=== PATIENT | female | born 1980 | race Caucasian/White ===

== ENCOUNTER → 2017-01-04 | Outpatient (CLI) | payer BC, OTHER ==
--- NOTE | 2017-01-04 10:45 | Diagnostic Imaging Report ---
PROCEDURE: US Gallbladder. TECHNIQUE: Multiple real-time grayscale images were obtained over the right upper quadrant in various projections. INDICATION: Abdominal pain. COMPARISON: None. FINDINGS: The liver appears unremarkable. The gallbladder appears unremarkable. There is no biliary dilatation. Common bile duct measures 2 mm. Pancreas is not well visualized. Visualized portions appear unremarkable. The right kidney measures 11.3 cm in length and appears normal. There is no ascites or sonographic Morrell's sign. IMPRESSION: No acute abnormality is seen. There is limited visualization of the pancreas. Dictated by: Dictated on workstation # [id number]
== END ==
LOC: RAD 09:13
PROVIDERS: ATTEND Nurse Practitioner Family
DX: R10.84 Generalized abdominal pain (principal); R59.0 Localized enlarged lymph nodes; E01.0 Iodine-deficiency related diffuse (endemic) goiter
CPT/HCPCS: 76705

== ENCOUNTER → 2017-01-18 | Outpatient (CLI) | payer BC ==
[~2017-01-18] MED LIST: CATHETER FLUSH 10 ML SYR IV PRN; LIOTHYSO5 PO; THYR60TA2 PO
--- NOTE | 2017-01-18 15:40 | Diagnostic Imaging Report ---
EXAMINATION: HIDA with EF measurements Indication: Abdominal pain TECHNIQUE: After the intravenous administration of 5 mCi of Tc 99m Choletec, imaging over the abdomen was obtained. This was followed by administration of Ensure orally to stimulate intrinsic CCK secretion, followed by continued imaging with ejection fraction measured. FINDINGS: There is homogeneous uptake in the liver with prompt bile duct and gallbladder filling seen. Bowel activity is seen at 10 minutes. Based on further imaging and gallbladder area of interest activity measurements after the administration of Ensure, the gallbladder ejection fraction is estimated at 68%. IMPRESSION: 1. Normal hepatobiliary uptake and Gallbladder filling. 2. Normal gallbladder ejection fraction. Dictated by: Dictated on workstation # [id number]
--- NOTE | 2017-01-19 11:35 | Physician Query-Final Dx ---
DINO LAGUNAS 01/19/17 1135: Clinic Account Progress/Dx Physician Query: Please give diagnosis Please give specific location of patients abdominal pain. Date of Service Jan 18, 2017 at 12:47 CARI PERSAUD DO 01/29/17 0814: Clinic Account Progress/Dx DIAGNOSIS: Diagnosis 1. Right upper quadrant abdominal pain. DINO LAGUNAS Jan 19, 2017 11:35 CARI PERSAUD DO Jan 29, 2017 08:14
== END ==
LOC: CARD 12:47
PROVIDERS: ATTEND Internal Medicine
DX: R10.11 Right upper quadrant pain (principal)
CPT/HCPCS: 78227

== ENCOUNTER 2017-01-28 15:08 | Outpatient (CLI) | payer BC ==
[~2017-01-28] VITALS: Ht 172.7 cm; Wt 68.0 kg
[2017-01-28] MEDS ORDERED: THYR60TA2 PO (15:41)
[2017-01-28] MEDS ORDERED: LIOTHYSO5 PO (15:41)
== END 2017-01-28 15:43 ==
LOC: PREOP 15:08
PROVIDERS: ATTEND Surgery
DX: Z01.818 Encounter for other preprocedural examination (principal); E04.9 Nontoxic goiter, unspecified

== ENCOUNTER → 2018-03-01 | Outpatient (CLI) | payer BC ==
[~2018-03-01] MED LIST changes: +ACHD5005 PO; -CATHETER FLUSH 10 ML SYR IV PRN; +IOHEXOL 350 MG/ML 100 ML (OMNIPAQUE 350) VIAL IV ONE; +NS 250 ML (IVPB) BAG IV ONE
--- NOTE | 2018-03-01 10:13 | Diagnostic Imaging Report ---
PROCEDURE: CT neck soft tissue with and without contrast. TECHNIQUE: Helically acquired axial images were obtained through the neck both before and after the administration of intravenous contrast. INDICATION: Lymphadenopathy. COMPARISON: Thyroid ultrasound 01/04/2017. FINDINGS: No cervical lymphadenopathy. No mass or fluid collection in the neck. Left thyroidectomy. The pharyngeal and laryngeal soft tissues are symmetric bilaterally with no focal mass or enhancement. The visualized floor of the mouth, tongue base and epiglottis are negative. The cervical carotid and vertebral arteries are grossly patent. The major salivary glands are negative. The lung apices are clear. The visualized intracranial contents, skull base and mastoids are negative. IMPRESSION: No acute CT findings in the neck. No cervical lymphadenopathy, mass or fluid collection. Dictated by: Dictated on workstation # [id number]
== END ==
LOC: RAD 08:12
PROVIDERS: ATTEND Nurse Practitioner Family
DX: R59.0 Localized enlarged lymph nodes (principal)
CPT/HCPCS: 70492

== ENCOUNTER 2018-06-24 11:42 | Outpatient (CLI) | payer BC ==
[~2018-06-24] VITALS: Ht 172.7 cm; Wt 64.6 kg
[~2018-06-24 11:42] MED LIST changes: -IOHEXOL 350 MG/ML 100 ML (OMNIPAQUE 350) VIAL IV ONE; -NS 250 ML (IVPB) BAG IV ONE
[2018-06-24] MEDS ORDERED: LEVO112T2 PO (11:54)
[2018-06-24 12:03] VITALS: BP 107/73
[2018-06-24 12:28] LABS: BASOPHILS % (AUTO) 0 % (0-10); EOSINOPHILS % (AUTO) 0 % (0-10); HEMATOCRIT 41 % (35-52); HEMOGLOBIN 13.8 G/DL (11.5-16.0); LYMPHOCYTES # (AUTO) 2.5 X 10^3 (1.0-4.0); LYMPHOCYTES % (AUTO) 25 % (12-44); MEAN CORPUSCULAR HEMOGLOBIN 32 PG (25-34); MEAN CORPUSCULAR HGB CONC 34 G/DL (32-36); MEAN CORPUSCULAR VOLUME 95 FL (80-99); MEAN PLATELET VOLUME 10.7 FL (7.4-10.4); MONOCYTES # (AUTO) 0.7 X 10^3 (0.0-1.0); MONOCYTES % (AUTO) 7 % (0-12); NEUTROPHILS # (AUTO) 6.6 X 10^3 (1.8-7.8); NEUTROPHILS % (AUTO) 67 % (42-75); PLATELET COUNT 306 10^3/uL (130-400); RED CELL DISTRIBUTION WIDTH 12.5 % (10.0-14.5); WHITE BLOOD COUNT 9.9 10^3/uL (4.3-11.0)
== END 2018-06-24 12:30 | disposition home or self-care (01) ==
LOC: PREOP 11:42
PROVIDERS: ATTEND Obstetrics & Gynecology
DX: Z01.812 Encounter for preprocedural laboratory examination (principal); Z11.2 Encounter for screening for other bacterial diseases; N87.1 Moderate cervical dysplasia; N81.2 Incomplete uterovaginal prolapse; R10.2 Pelvic and perineal pain; N39.3 Stress incontinence (female) (male); D64.9 Anemia, unspecified
CPT/HCPCS: 36415; 85025; 86850; 86900; 86901; 87081

== ENCOUNTER 2018-07-01 11:24 | Day surgery (SDC) | payer BC ==
[~2018-07-01] VITALS: Ht 172.7 cm; Wt 64.6 kg
[~2018-07-01 11:24] MED LIST changes: +LEVO112T2 PO
[2018-07-01 11:30] VITALS: BP 112/74
[2018-07-01] MEDS ORDERED: ceFAZolin INJECTION 1,000 MG in WATER (STERILE) FOR INJECTION 10 ML IV ONE (11:30)
[2018-07-01] MEDS ORDERED: LIDOCAINE PF 2% 5 ML (XYLOCAINE) VIAL ONE (11:37)
[2018-07-01] MEDS ORDERED: ONDANSETRON 4 MG/2 ML (SDV) Z0FRAN ONE ×2 (11:37→14:49)
[2018-07-01] MEDS ORDERED: proPOfol 200 MG/20 ML (DIPRIVAN) VIAL IV ONE (11:37)
[2018-07-01] MEDS ORDERED: MIDAZOLAM 2 MG/2 ML (VERSED) VIAL ONE (11:37)
[2018-07-01] MEDS ORDERED: fentaNYL INJECTION 100 MCG/2 ML AMP ONE ×2 (11:37→13:27)
[2018-07-01] MEDS ORDERED: SEVOFLURANE (ULTANE) 15 ML INHAL SOLN ONE ×12 (11:37→14:46)
[2018-07-01] MEDS ORDERED: DEXAMETHASONE 10 MG/ML (DECADRON) 1 ML VIAL ONE (11:38)
[2018-07-01] MEDS ORDERED: GLYCOPYRROLATE 0.2 MG/ML (ROBINUL) 2 ML VIAL ONE ×2 (11:38→14:46)
[2018-07-01] MEDS ORDERED: NEOSTIGMINE 1 MG/ML 5 ML SYRINGE ONE (11:38)
[2018-07-01] MEDS ORDERED: ESTRADIOL VAGINAL CREAM 42.5 GM (ESTRACE) VG ONE (11:39)
[2018-07-01] MEDS ORDERED: BUP/EPI 0.25% 1:200,000 (MARCAINE) 10 ML VIAL IJ ONE (11:39)
[2018-07-01] MEDS ORDERED: KETOROLAC 30 MG/ML VIAL ONE ×2 (11:41→14:48)
[2018-07-01] MEDS: LACTATED RINGERS 1,000 ML IV PRN ×2 (11:45→13:05)
[2018-07-01] MEDS ORDERED: ceFAZolin INJECTION 1,000 MG ONE (12:01)
--- NOTE | 2018-07-01 12:08 | Progress Note-Pre Operative ---
Pre-Operative Progress Note H&P Reviewed The H&P was reviewed, patient examined and no changes noted. Date Seen by Provider: Jul 01, 2018 Time Seen by Provider: 12:08 Date H&P Reviewed: Jul 01, 2018 Time H&P Reviewed: 12:08 Pre-Operative Diagnosis: ADDIE II / Uterovaginal prolapse PAVAN CLEMONS MD Jul 01, 2018 12:08
--- NOTE | 2018-07-01 12:10 | Progress Note-Post Operative ---
Post-Operative Progess Note Surgeon (s)/Aml Analyst (s) Surgeon PAVAN CLEMONS MD Aml Analyst: Pattie Acevedo Pre-Operative Diagnosis ADDIE II / Uterovaginal prolapse Post-Operative Diagnosis Same with extensive endometriosis and with path pending Procedure & Operative Findings Date of Procedure 07/01/18 Procedure Performed/Findings TLH/RSO/LSO/A&P Repairs with Enterocele repair/LS Appy and with the adhesio lysis and cystoscopy Anesthesia Type GETA Estimated Blood Loss Estimated blood loss (mL): Minimal Specimens/Packing Specimens Removed Uterus/Tubes/R and L Ovary/Appy Packing: PAVAN Small MD Jul 01, 2018 12:10
[2018-07-01] MEDS ORDERED: PROMETHAZINE INJ 25 MG/ML (PHENERGAN) AMP IM PRN (12:15)
[2018-07-01] MEDS ORDERED: WATER (STERILE) FOR INJ 10 ML BTL INJ ONE (12:15)
[2018-07-01] MEDS ORDERED: MEPERIDINE (DEMEROL) INJ 100 MG/ML IM PRN (12:15)
[2018-07-01] MEDS ORDERED: ESTROGENS CONJ IV 25 MG/5 ML (PREMARIN) VIAL IVP ONE (12:15)
[2018-07-01] MEDS ORDERED: BENZOCAINE/MENTHOL (DERMOPLAST) 56 ML CAN TP PRN (12:15)
[2018-07-01] MEDS ORDERED: ONDANSETRON 4 MG/2 ML (SDV) Z0FRAN IVP PRN ×2 (12:15→15:15)
--- OUTSIDE RECORDS SUMMARY | 2018-07-01 12:16 | XMS REPORT | Continuity of Care Document ---
Author Author [facility] Organization [facility] Address Unknown Phone Unavailable Allergies Active Description Code Type Severity Reaction Onset Reported/Identified Relationship to Patient Clinical Status Yes NKANo Known Allergies NKA Miscellaneous Allergy Unknown N/A 09/23/2006 Yes No Known Drug Allergies [id number] Drug Allergy Unknown N/A 06/24/2018 Medications There is no data. Problems Date Dx Coded Attending Type Code Diagnosis Diagnosed By 02/12/2014 DAMIAN PERSAUD SERVER SECURITY ADMINISTRATOR Ot 458.0 02/12/2014 DAMIAN PERSAUD SERVER SECURITY ADMINISTRATOR Ot 780.2 09/14/2014 DAMIAN PERSAUD SERVER SECURITY ADMINISTRATOR Ot 458.0 09/14/2014 DAMIAN PERSAUD SERVER SECURITY ADMINISTRATOR Ot 780.2 01/01/2017 DAMIAN PERSAUD SERVER SECURITY ADMINISTRATOR Ot 458.0 ORTHOSTATIC HYPOTENSION 01/01/2017 DAMIAN PERSAUD SERVER SECURITY ADMINISTRATOR Ot 780.2 SYNCOPE AND COLLAPSE 01/05/2017 DAMIAN PERSAUD SERVER SECURITY ADMINISTRATOR Ot E01.0 IODINE-DEFICIENCY RELATED DIFFUSE (ENDEM 01/05/2017 DAMIAN PERSAUD SERVER SECURITY ADMINISTRATOR Ot R10.84 GENERALIZED ABDOMINAL PAIN 01/05/2017 DAMIAN PERSAUD SERVER SECURITY ADMINISTRATOR Ot R59.0 LOCALIZED ENLARGED LYMPH NODES 01/21/2017 DAMIAN PERSAUD SERVER SECURITY ADMINISTRATOR Ot E01.0 IODINE-DEFICIENCY RELATED DIFFUSE (ENDEM 01/21/2017 DAMIAN PERSAUD SERVER SECURITY ADMINISTRATOR Ot R10.84 GENERALIZED ABDOMINAL PAIN 01/21/2017 DAMIAN PERSAUD SERVER SECURITY ADMINISTRATOR Ot R59.0 LOCALIZED ENLARGED LYMPH NODES 01/29/2017 BRIAN PERALES, KWESI Garnett Ot E04.9 NONTOXIC GOITER, UNSPECIFIED 01/29/2017 BRIAN PERLAES, KWESI Garnett Ot Z01.818 ENCOUNTER FOR OTHER PREPROCEDURAL EXAMIN 01/29/2017 CARI PERSAUD DO Ot R10.11 RIGHT UPPER QUADRANT PAIN 02/04/2017 BRIAN PERALES, KWESI Garnett Ot C73 MALIGNANT NEOPLASM OF THYROID GLAND 02/04/2017 BRIAN PERALES, KWESI Garnett Ot E04.2 NONTOXIC MULTINODULAR GOITER 02/04/2017 BRIAN PERALES, KWESI Garnett Ot F17.210 NICOTINE DEPENDENCE, CIGARETTES, UNCOMPL 02/10/2017 KWESI TORRES MD Ot C73 MALIGNANT NEOPLASM OF THYROID GLAND 02/10/2017 BRIAN PERALES, KWESI Garnett Ot F17.210 NICOTINE DEPENDENCE, CIGARETTES, UNCOMPL 02/16/2017 BRIAN PERALES, KWESI Garnett Ot C73 MALIGNANT NEOPLASM OF THYROID GLAND 02/16/2017 BRIAN PERALES, KWESI Garnett Ot F17.210 NICOTINE DEPENDENCE, CIGARETTES, UNCOMPL 02/17/2017 CARI PERSAUD DO Ot R10.11 RIGHT UPPER QUADRANT PAIN 03/02/2018 DAMIAN PERSAUD Ot R59.0 LOCALIZED ENLARGED LYMPH NODES 06/27/2018 PAVAN CLEMONS MD, Ot D64.9 ANEMIA, UNSPECIFIED 06/27/2018 PAVNA CLEMONS MD, Ot N39.3 STRESS INCONTINENCE (FEMALE) (MALE) 06/27/2018 PAVAN CLEMONS MD, Ot N81.2 INCOMPLETE UTEROVAGINAL PROLAPSE 06/27/2018 PAVAN CLEMONS MD, Ot N87.1 MODERATE CERVICAL DYSPLASIA 06/27/2018 PAVAN CLEMONS MD, Ot R10.2 PELVIC AND PERINEAL PAIN 06/27/2018 PAVAN CLEMONS MD, Ot Z01.812 ENCOUNTER FOR PREPROCEDURAL LABORATORY E 06/27/2018 PAVAN CLEMONS MD, Ot Z11.2 ENCOUNTER FOR SCREENING FOR OTHER BACTER Procedures There is no data. Results Test Result Range Methicillin resistant Staphylococcus aureus (MRSA) screening culture - 09:45 Methicillin resistant Staphylococcus aureus (MRSA) screening culture NEG NRG Urine beta human chorionic gonadotropin (hCG) measurement - 02/03/17 09:48 Urine beta human chorionic gonadotropin (hCG) measurement NEGATIVE NEGATIVE Automated blood complete blood count (hemogram) panel - 02/03/17 10:20 Blood leukocytes automated count (number/volume) 7.7 10*3/uL 4.3-11.0 Blood erythrocytes automated count (number/volume) 4.30 10*6/uL 4.35-5.85 Venous blood hemoglobin measurement (mass/volume) 13.3 g/dL 11.5-16.0 Blood hematocrit (volume fraction) 39 % 35-52 Automated erythrocyte mean corpuscular volume 91 [foz_us] 80-99 Automated erythrocyte mean corpuscular hemoglobin (mass per erythrocyte) 31 pg 25-34 Automated erythrocyte mean corpuscular hemoglobin concentration measurement ( mass/volume) 34 g/dL 32-36 Automated erythrocyte distribution width ratio 12.5 % 10.0-14.5 Automated blood platelet count (count/volume) 243 10*3/uL 130-400 Automated blood platelet mean volume measurement 10.1 [foz_us] 7.4-10.4 Whole blood basic metabolic panel - 02/03/17 10:20 Serum or plasma sodium measurement (moles/volume) 137 mmol/L 135-145 Serum or plasma potassium measurement (moles/volume) 3.9 mmol/L 3.6-5.0 Serum or plasma chloride measurement (moles/volume) 107 mmol/L 98-107 Carbon dioxide 24 mmol/L 21-32 Serum or plasma anion gap determination (moles/volume) 6 mmol/L 5-14 Serum or plasma urea nitrogen measurement (mass/volume) 11 mg/dL 7-18 Serum or plasma creatinine measurement (mass/volume) 0.75 mg/dL 0.60-1.30 Serum or plasma urea nitrogen/creatinine mass ratio 15 NRG Serum or plasma creatinine measurement with calculation of estimated glomerular filtration rate > NRG Serum or plasma glucose measurement (mass/volume) 87 mg/dL 70-105 Serum or plasma calcium measurement (mass/volume) 9.1 mg/dL 8.5-10.1 Complete blood count (CBC) with automated white blood cell (WBC) differential - 06/24/18 12:00 Blood leukocytes automated count (number/volume) 9.9 10*3/uL 4.3-11.0 Blood erythrocytes automated count (number/volume) 4.34 10*6/uL 4.35-5.85 Venous blood hemoglobin measurement (mass/volume) 13.8 g/dL 11.5-16.0 Blood hematocrit (volume fraction) 41 % 35-52 Automated erythrocyte mean corpuscular volume 95 [foz_us] 80-99 Automated erythrocyte mean corpuscular hemoglobin (mass per erythrocyte) 32 pg 25-34 Automated erythrocyte mean corpuscular hemoglobin concentration measurement ( mass/volume) 34 g/dL 32-36 Automated erythrocyte distribution width ratio 12.5 % 10.0-14.5 Automated blood platelet count (count/volume) 306 10*3/uL 130-400 Automated blood platelet mean volume measurement 10.7 [foz_us] 7.4-10.4 Automated blood neutrophils/100 leukocytes 67 % 42-75 Automated blood lymphocytes/100 leukocytes 25 % 12-44 Blood monocytes/100 leukocytes 7 % 0-12 Automated blood eosinophils/100 leukocytes 0 % 0-10 Automated blood basophils/100 leukocytes 0 % 0-10 Blood neutrophils automated count (number/volume) 6.6 10*3 1.8-7.8 Blood lymphocytes automated count (number/volume) 2.5 10*3 1.0-4.0 Blood monocytes automated count (number/volume) 0.7 10*3 0.0-1.0 Automated eosinophil count 0.0 10*3/uL 0.0-0.3 Automated blood basophil count (count/volume) 0.0 10*3/uL 0.0-0.1 Blood type T Indirect antibody screen panel - 06/24/18 12:00 ABO+Rh group AP NRG Transfusion band number TNP NRG Blood group antibody screen NEGATIVE NRG Methicillin resistant Staphylococcus aureus (MRSA) screening culture - 12:00 Methicillin resistant Staphylococcus aureus (MRSA) screening culture NEG NRG Urine beta human chorionic gonadotropin (hCG) measurement - 07/01/18 11:30 Urine beta human chorionic gonadotropin (hCG) measurement NEGATIVE NEGATIVE Encounters ACCT No. Visit Date/Time Discharge Status Pt. Type Provider Facility Loc./Unit Complaint [id number] 06/24/2018 11:42:00 06/24/2018 12:30:00 DIS Outpatient PAVAN CLEMONS MD [facility] PREOP ADDIE II [id number] 03/24/2018 15:30:00 03/24/2018 23:59:59 CLS Preadmit PAVAN CLEMONS MD [facility] RAD SCREENING BASELINE [id number] 03/01/2018 08:12:00 03/01/2018 23:59:59 CLS Outpatient DAMIAN PERSAUD SERVER SECURITY ADMINISTRATOR [facility] RAD LYMPHADENOPATHY [id number] 08/19/2017 09:14:00 08/19/2017 23:59:59 CLS Preadmit ARIA HUNTLEY DO [facility] RAD MASS OF BODY STRUCTURE [id number] 02/03/2017 09:28:00 02/04/2017 11:50:00 DIS Outpatient BRIAN PERALES, KWESI Garnett [facility] LEFT THYROID NODULES [id number] 01/29/2017 13:54:00 01/29/2017 23:59:59 CLS Preadmit OTHER, UNLISTED [facility] CARD ABD PAIN [id number] 01/28/2017 15:08:00 01/28/2017 15:43:00 DIS Outpatient BRIAN PERALES, KWESI Garnett [facility] PREOP LEFT SIMBA- THYROIDECTOMY; POSS TOTAL [id number] 01/18/2017 12:47:00 01/18/2017 23:59:59 CLS Outpatient CARI PERSAUD DO [facility] CARD ABDOMINAL PAIN [id number] 01/04/2017 09:13:00 01/04/2017 23:59:59 CLS Outpatient DAMIAN PERSAUD SERVER SECURITY ADMINISTRATOR [facility] RAD ABD PAIN,ENLARGED LYMPH NODE [id number] 12/28/2016 12:31:00 12/28/2016 23:59:59 CLS Preadmit WU PERSAUDIA L SERVER SECURITY ADMINISTRATOR [facility] RAD THYROMEGALY,ENLARGED LYMPH NODE [id number] 01/22/2014 10:02:00 01/22/2014 23:59:59 CLS Outpatient WU PERSAUDIA L SERVER SECURITY ADMINISTRATOR [facility] CARD ORTHOSTATIC HYPOTENSION [id number] 07/01/2018 11:24:00 ACT Outpatient KACI PERALES, PAVAN Frazier [facility] ADDIE II
[2018-07-01] MEDS ORDERED: ROCURONIUM 10 MG/ML 5 ML SYRINGE IV ONE ×2 (14:01)
--- NOTE | 2018-07-01 14:26 | Anesthesia-General Post-Op ---
General Patient Condition Mental Status/LOC: Same as Preop Cardiovascular: Satisfactory Nausea/Vomiting: Absent Respiratory: Satisfactory Pain: Controlled Complications: Absent Post Op Complications Complications None Follow Up Care/Instructions Patient Instructions None needed. Anesthesia/Patient Condition Patient Condition Patient is doing well, no complaints, stable vital signs, no apparent adverse anesthesia problems. No complications reported per nursing. MARTÍNEZ STEWART CRNA Jul 01, 2018 14:26
[2018-07-01] MEDS ORDERED: ESTROGENS CONJ IV 25 MG/5 ML (PREMARIN) VIAL ONE (14:48)
[2018-07-01] MEDS ORDERED: WATER (STERILE) FOR INJECTION 10 ML ONE (14:48)
[2018-07-01] MEDS: KETOROLAC 30 MG/ML VIAL IVP SCH ×2 (14:52→20:44)
[2018-07-01] MEDS ORDERED: OXYC1TAB87 PO (15:14)
[2018-07-01] MEDS ORDERED: IBUP-1780 PO (15:14)
[2018-07-01] MEDS ORDERED: DOCU100C37 PO (15:14)
[2018-07-01] MEDS ORDERED: ESTR2TAB PO (15:14)
[2018-07-01] MEDS ORDERED: morphine INJ 10 MG/ML 1ML (SYR OR VIAL) IVP ONE (15:15)
[2018-07-01] MEDS ORDERED: MEPERIDINE (DEMEROL) INJ 50 MG/ML IVP ONE (15:15)
[2018-07-01] MEDS ORDERED: HYDROmorphone 2 MG/ML VIAL (DILAUDID) IV ONE (15:15)
--- NOTE | 2018-07-01 15:16 | Discharge Instructions ---
Discharge Instructions Discharge Medications New, Converted or Re-Newed RX: RX on Chart Patient Instructions Patient Instructions: DIRECTED Return to The Hospital For: As directed Activity & Diet Discharge Diet: No Restrictions (As directed) Activity as Tolerated: No Orders-Post D/C & Referrals Follow Up Appt: Return to clinic on Wednesday, July 14, 2018 at 930 a.m. for staple removal Call to make follow up appt. for patient in 4 weeks. Activity: Rest for 24 hours, than as tolerated. Wound Care: May remove Band-Aid tomorrow. Replace as desired. Keep incisions clean and dry. Wash daily with soap and water. Please call in RX to patient pharmacy. Diet: As tolerated-Clear Liquids only if nauseated. shower or tub bathe as desired. No driving for 24 hours, no alcoholic beverages for 24 hours, and nothing per vagina (no tampons, douching, or intercourse) for 8 weeks. Patient to return to the clinic as soon as possible for: Temperature greater than 101F, Severe Pain, Foul discharge from incision or vagina, Excessive Bleeding (more than a period). PAVAN CLEMONS MD Jul 01, 2018 15:15
[2018-07-01 16:05] VITALS: BP 94/57
--- NOTE | 2018-07-01 16:05 | NUR ---
Patient to room 306 per bed from [facility] following surgery today by Dr. Mcdonald. Drowsy, but oriented. O2 on at 2.5 liter per nasal cannula. Patient has 4 abdominal lap sites with dressings, dry and intact, no drainage. Story cath in place with scant yellow drainage. SCD's in place and connected to pump. IV site in left forearm patent without signs of inflammation. OR IV fluids connected to IV pump to run 125cc/hr. VS checked. Patient given water and ice. Discussed plan of care.
--- NOTE | 2018-07-01 16:30 | NUR ---
Patient complains of pain in lower abdomen, rates 8 on pain scale. Offered pain meds.
[2018-07-01] MEDS ORDERED: MEPERIDINE (DEMEROL) INJ 100 MG/ML ONE (16:33)
[2018-07-01] MEDS ORDERED: PROMETHAZINE INJ 25 MG/ML (PHENERGAN) AMP ONE (16:33)
[2018-07-01] MEDS ORDERED: D5 LR IV SOLUTION 1,000 ML IV ONE (17:00)
[2018-07-01] MEDS: D5 LR IV SOLUTION 1,000 ML IV SCH (17:00)
--- NOTE | 2018-07-01 17:00 | NUR ---
initial assessment completed, see interventions for further. heaton to DD with clear, yellow urine noted in chamber. v-pad in place. lapsites x4 noted. D/I. pt resting with eyes closed. family members @ side.
--- NOTE | 2018-07-01 18:56 | NUR ---
called to check on pt's status. update given. no new orders received.
--- NOTE | 2018-07-01 19:15 | NUR ---
report given to CATRACHO Biggs.
[2018-07-01 20:00] VITALS: BP 86/54
--- NOTE | 2018-07-01 20:00 | NUR ---
here. no new orders received.
--- NOTE | 2018-07-01 20:30 | NUR ---
assessment completed. pt eating a sandwich. denies any nausea. pt c/o abdominal pressure. family remain at bedside.
[2018-07-01] MEDS: oxyCODONE/APAP 5/325MG (PERCOCET 5) TABLET PO PRN (21:24)
[2018-07-02] VITALS: BP 82/48
[2018-07-02] MEDS: oxyCODONE/APAP 5/325MG (PERCOCET 5) TABLET PO PRN ×3 (00:19→08:51)
[2018-07-02] MEDS: D5 LR IV SOLUTION 1,000 ML IV SCH (00:57)
--- NOTE | 2018-07-02 01:46 | OPERATIVE REPORT ---
DATE OF SERVICE: 07/01/2018 PREOPERATIVE DIAGNOSES: 1. Pelvic pain, cervical intraepithelial neoplasia 2. 2. Uterovaginal prolapse. POSTOPERATIVE DIAGNOSES: 1. Pelvic pain, cervical intraepithelial neoplasia 2. 2. Uterovaginal prolapse. 3. Pathology pending as well as extensive endometriosis. OPERATIVE PROCEDURE: Total laparoscopic hysterectomy with bilateral salpingo-oophorectomy, adhesiolysis, destruction of endometriosis implants and laparoscopic appendectomy followed by anterior and posterior vaginal repair with enterocele repair and cystoscopy. OPERATIVE DESCRIPTION: With the patient in the supine position under satisfactory general anesthesia, she was repositioned in dorsal lithotomy position in the [facility] and prepped and draped in the usual fashion for abdominal and vaginal surgery using robotic assistance. Weighted speculum placed in posterior fornix of vagina, cervix exposed and grasped anteriorly with single tooth tenaculum. Uterus was sounded to 13 cm with uterine sound. The cervix was then serially dilated with Chandan dilators to accommodate a Lizette II manipulator, which was placed with a 6 mm x 8 cm uterine probe and a 35 mm colpotomy ring. Sutures of #1 Vicryl placed at 3 and 9 o'clock position of the cervix to affix the uterus to the manipulator. Story catheter was placed in urinary bladder. Tenaculum and speculum removed and patient brought in low dorsal lithotomy position. A 12 mm incision made across the apex of the surgical incision from the patient's umbilical relocation and a stab wound in the left upper quadrant. Veress needle was placed through the stab wound into the abdominal cavity and correct placement was confirmed with water drop test. The abdomen insufflated to 2.4 liters of carbon dioxide. Then the Veress needle was removed and an attempt was made to place a 12 mm port through the umbilical incision. This was unsuccessful and not known quite where the port was. I have opted to place a 5 mm port in the left upper quadrant by extending the stab wound incision and then using a 5 mm scope, I was able to place the umbilical port under direct vision. The umbilical port initial placement had been extraperitoneal with it. Under direct vision, I could place it quite easily. The lateral ports were placed through 8 mm incisions, made 8 cm lateral just inferior to the umbilicus on each side. All incision sites were infiltrated with 0.25% Marcaine with epinephrine prior to incision and port placement. The patient was now placed in Trendelenburg allowing the bowel to spill out of the pelvis. The da Tamara column was advanced on the patient and docked and then the operative instruments were placed and I retired to the da Tamara console. At the console using a vessel sealer on the right and a bipolar fenestrated grasper and left the, pelvis was first examined. The tubes were somewhat tortuous and edematous. There was endometriosis implants in both ovarian fossa. There was extensive endometriosis involving the left ovary. There was ovulation evidence on the right ovary. The appendix was involved in adhesions as was the cecum. That appeared to be involved with endometriosis. The uterus was quite mottled, large and bulky consistent with adenomyosis and/or fibroids or both. There were some adhesions of the sigmoid epiploicae and the sigmoid mesentery to the left pelvic brim that appeared to be involved with endometriosis as well. Decision was made to remove the left ovary rather than attempt to conserving it secondary to the extensive endometriosis. Attention was turned first to the right tube and ovary was grasped and elevated. The ureter passed very close to the IP ligament. Care was taken to clamp, cauterize and divide the IP ligament well away from the ureter on the right with the vessel sealer that was continued across the mesovarium, across the round ligament, across the broad ligament, down onto the cardinal ligament visualized in the ureter. Essentially the whole time. The same procedure performed on the left, allowing for removal of both tubes and ovaries eventually with the uterus. The left ureter was a little bit more remote from the IP ligament. The anterior lower uterine segment peritoneum was exposed and then using a monopolar shear in place of the vessel sealer, the anterior lower uterine segment peritoneum was divided. The bladder was carefully dissected down off of the aortic segment and then a colpotomy incision was started at 12 o'clock position onto the colpotomy ring that was continued circumferentially until the entire colpotomy ring was exposed and then the uterus was extracted through the vagina. The uterus was large and bulky, but it came out with relative minor difficulty secondary to its size. It was intact on removal. That was sent to Pathology for permanent section. The vaginal cuff was now closed with two sutures of V-Loc lesvia suture starting from the first angle and continuing about 3[address] and then from the left angle across the balance of the cuff and then reperitonealized and the cuff with the final stitches on each suture. Care was taken to include the uterine vessel pedicles in the first couple stitches on each side. The pelvis was irrigated, examined. Hemostasis was complete. Both ureters were seemed to peristalse freely. The instruments were replaced with a bipolar fenestrated grasper on the left and the monopolar silvia on the right, endometriosis implants in the cul-de-sac and on the ovarian fossae on both sides were touched with electrocautery to destroy them. The adhesions of the sigmoid on the left pelvic brim was taken down. The cecum adhesions and appendix adhesions were lysed and then the mesoappendix was divided close to the base of the appendix and then the mesoappendix was divided to leave the appendix just attached to the cecum. At this point, the robotic portion of the procedure was halted in favor of using the 5 mm scope and an Endo-ALESSANDRA and a grasper. With those instruments, the appendix was grasped and elevated. The Endo-ALESSANDRA was placed across the base of the appendix and fired. The appendix was placed in an Endobag and brought out through the umbilical incision port. The stump of the appendix was copiously irrigated as was the pelvis. The irrigant was aspirated out and the stump of the appendix was treated with several drops of Betadine solution. With hemostasis complete, no remaining abnormal pathology. Sponge and needle counts correct. The operative instruments were removed under direct vision as were the ports. The patient was brought out of Trendelenburg. The abdomen was evacuated of the insufflating gas in the process of removing the ports. The skin incisions were stapled. The fascia at the supraumbilical incision was closed with a [id number] suture of 2-0 Vicryl. The patient now repositioned in preparation for anterior and posterior vaginal repairs. The weighted speculum placed in the posterior fornix of vagina. The vaginal wall was grasped near its midpoint with two Mary Beth clamps. Vaginal wall was opened in the midline with Metzenbaum scissors. That opening was continued almost to the vaginal cuff and to approximately 1.5 cm from the urethral meatus. The bladder was carefully dissected off the muscularis of the vagina back to pubic rami bilaterally. Endopelvic fascia and bladder wall were plicated with 2-0 Vicryl sutures elevating the bladder and lengthening urethra. A single suture was placed on the urethra and a modified Amrita plication to support urethra. The redundant anterior vaginal muscularis mucosa was removed sharply. The vaginal wall was closed with running lock suture of 3-0 Vicryl Rapide. Posterior repair was affected by placing Mary Beth clamps on the perineum and hymenal ring at 5 and 7 o'clock position. The inverted triangle of skin was removed from the perineal body and upright triangle was removed from the posterior vaginal floor. The rectovaginal space was entered sharply and dissected bluntly almost to the apex of the vagina. There was a small enterocele that was reduced and then plicated with 2-0 Vicryl pursestring sutures. The rectovaginal space was obliterated with 2-0 Vicryl sutures. The perineal body was restored with 2-0 Vicryl sutures and then redundant posterior vaginal muscularis mucosa was removed sharply. Vaginal wall was closed with a running lock suture of 3-0 Vicryl Rapide that closure was continued past the hymenal ring down on the perineal body then back up subcutaneous to the hymenal ring where the suture was tied. Digital rectal exam confirmed no sutures into or through the rectal mucosa. There was no stricture of the rectum. The cystoscope was then performed using saline as a distending medium. The bladder wall was found to be completely intact. Both ureters were seemed to efflux probably and vigorously. With the procedure complete, sponge, needle counts correct. Estimated blood loss was minimal. The patient then had the vagina filled with Estrace vaginal cream and a pack of Kerlix gauze was placed. Story catheter was left to dependent drainage. Sponge and needle counts were again correct at the end of procedure. The patient was uneventfully awakened from her general anesthesia now and transferred to the recovery room in stable condition. Job ID: [id number] DocumentID: [id number] Dictated Date: 07/01/2018 14:51:13 [employer] Date: 07/02/2018 01:45:40 Dictated By: PAVAN CLEMONS MD [facility]
[2018-07-02 03:54] VITALS: BP 80/50
[2018-07-02] MEDS: KETOROLAC 30 MG/ML VIAL IVP SCH (03:58)
--- NOTE | 2018-07-02 06:23 | NUR ---
VAG PACKING REMOVED, IV DC'D, HOWARD DC'D. PT TOLERATED WELL.
[2018-07-02 06:25] VITALS: BP 84/51
--- NOTE | 2018-07-02 08:15 | NUR ---
here to see pt.
--- NOTE | 2018-07-02 08:34 | Progress Note-Standard ---
Standard Progress Note Progress Notes/Assess & Plan Date Seen by a Provider: Jul 02, 2018 Time Seen by a Provider: 08:33 Progress/Assessment & Plan This patient is without complaint. She is ambulating tolerating oral intake well has good pain control. Her Story catheter is removed this morning she has not voided yet. She denies headache, denies shortness of breath, denies nausea vomiting, and denies chest pain. Vital Signs Date Time Temp Pulse Resp B/P (MAP) Pulse Ox O2 Delivery O2 Flow Rate FiO2 07/02/18 06:25 98.5 63 18 84/51 (62) Room Air 07/02/18 03:54 98.4 73 18 80/50 (60) Room Air 07/02/18 00:00 97.8 55 18 82/48 (59) Room Air 07/01/18 22:24 Room Air 07/01/18 20:00 97.8 54 18 86/54 (65) 100 Room Air 07/01/18 20:00 97.8 54 16 86/54 (65) 99 Room Air 07/01/18 16:05 97.8 66 18 94/57 (69) 100 Nasal Cannula 2.50 07/01/18 11:30 98.4 90 16 112/74 (87) 99 Room Air I & O 07/02/18 07:00 Intake Total 1610 ml Output Total 1175 ml Balance 435 ml Vital signs are stable. Patient is afebrile. The abdomen is benign. Extremities show no clubbing cyanosis. There is no Homans sign. Assessment and plan post operative day number 1 doing well. Plan is routine convalescence care today and discharge home once she demonstrates adequate bladder function Final Diagnosis ADDIE 2/uterovaginal prolapse PAVAN CLEMONS MD Jul 02, 2018 08:34
[2018-07-02 08:44] VITALS: BP 90/50
[2018-07-02] MEDS ORDERED: IBUPROFEN 800 MG (MOTRIN) TAB PO ONE (08:45)
[2018-07-02] MEDS ORDERED: DOCUSATE SODIUM 100 MG (COLACE) CAP PO SCH (09:00)
[2018-07-02] MEDS ORDERED: IBUPROFEN 800 MG (MOTRIN) TAB PO SCH (12:00)
--- NOTE | 2018-07-02 12:00 | NUR ---
Assisted up to BR. voided 200cc clear, yellow urine without difficulty. karla-care offered. v-pad and panties in place.
--- NOTE | 2018-07-02 12:40 | NUR ---
Motrin, Colace, and Estridol Rx's called into [facility] pharmacy per pt's request.
--- NOTE | 2018-07-02 13:00 | NUR ---
regular diet served.
--- NOTE | 2018-07-02 13:19 | Anesthesia-General Post-Op ---
General Patient Condition Mental Status/LOC: Same as Preop Cardiovascular: Satisfactory Nausea/Vomiting: Absent Respiratory: Satisfactory Pain: Controlled Complications: Absent Post Op Complications Complications None Follow Up Care/Instructions Patient Instructions None needed. Anesthesia/Patient Condition Patient Condition Patient is doing well, no complaints, stable vital signs, no apparent adverse anesthesia problems. No complications reported per nursing. CHAD MARTINEZ CRNA Jul 02, 2018 13:19
--- NOTE | 2018-07-02 14:00 | NUR ---
dismissal instructions given, verbalizes understanding. reviewed Rx's and administration schedule. instructed pt to call to schedule post op appointments.
--- NOTE | 2018-07-02 14:10 | NUR ---
pt ambulated to private vehicle with mother @ side. pt stable with no sx's of distress noted.
== END 2018-07-02 14:10 | disposition home or self-care (01) ==
LOC: SDC 11:24 → WS 16:05 → SDC 07-02 14:10
PROVIDERS: ATTEND Obstetrics & Gynecology
DX: N87.1 Moderate cervical dysplasia (principal); N81.4 Uterovaginal prolapse, unspecified; N80.0 Endometriosis of uterus; N80.1 Endometriosis of ovary; N80.3 Endometriosis of pelvic peritoneum; N72 Inflammatory disease of cervix uteri; N88.8 Other specified noninflammatory disorders of cervix uteri; N83.11 Corpus luteum cyst of right ovary; N83.202 Unspecified ovarian cyst, left side; N83.8 Other noninflammatory disorders of ovary, fallopian tube and broad ligament; E03.9 Hypothyroidism, unspecified; F17.210 Nicotine dependence, cigarettes, uncomplicated; Z79.899 Other long term (current) drug therapy
CPT/HCPCS: 36415; 84703; 86850; 86900; 86901; 88302; 88307; 94664

== ENCOUNTER 2020-10-16 10:21 | Outpatient (RCR) | payer BC ==
[~2020-10-16 10:21] MED LIST changes: +DOCU100C37 PO; +ESTR2TAB PO; +IBUP-1780 PO; +OXYC1TAB87 PO
== END 2020-10-23 11:00 | disposition home or self-care (01) ==
PROVIDERS: ATTEND Nurse Practitioner Family
DX: S52.571D Other intraarticular fracture of lower end of right radius, subsequent encounter for closed fracture with routine healing (principal); S52.044D Nondisplaced fracture of coronoid process of right ulna, subsequent encounter for closed fracture with routine healing; Z98.890 Other specified postprocedural states; Z87.81 Personal history of (healed) traumatic fracture; W10.8XXD Fall (on) (from) other stairs and steps, subsequent encounter; Y92.838 Other recreation area as the place of occurrence of the external cause